=== PATIENT | female | born 1955 | race Caucasian/White ===

== ENCOUNTER 2019-06-08 14:41 | Outpatient (CLI) | payer BC, SELFPAY ==
[2019-06-08 15:26] LABS: Add Urine Microscopic? YES; Appearance Urine Clear (Clear); Bacteria Urine Trace /hpf; Bilirubin Urine Negative (Negative); Blood Urine 1+ (Negative); Color Urine Straw (Yellow); Glucose Urine UA Negative (Negative); Ketones Urine Negative (Negative); Leukocyte Esterase Ur 2+ LEU/UL (Negative); Nitrate Urine Negative (Negative); Protein Urine Negative (Negative); RBC Urine 0-2 /hpf (0-2); Specific Grav Ur 1.005 (1.001-1.035); Squamous Epithelial Cell Urine Occasional /hpf (Few); Urobilinogen Urine Negative mg/dL (<2.0); WBC Urine 21-30 /hpf
== END 2019-06-08 14:42 | disposition home or self-care (01) ==
LOC: ANHLAB 14:43
PROVIDERS: PCP Internal Medicine; Visit Provider Internal Medicine
DX: N39.0 Urinary tract infection, site not specified (principal)
CPT/HCPCS: 81001; 87077; 87086; 87088; 87186

== ENCOUNTER → 2020-11-29 08:01 | Outpatient (CLI) | payer BC, SELFPAY ==
[2020-11-29 18:53] LABS: SARS-CoV-2 RNA PCR Negative
== END ==
PROVIDERS: PCP Internal Medicine; Visit Provider Internal Medicine
DX: Z92.29 Personal history of other drug therapy (principal); Z20.822 Contact with and (suspected) exposure to COVID-19
CPT/HCPCS: C9803; U0003; U0005

== ENCOUNTER 2022-03-23 12:38 | Outpatient (CLI) | payer BC, SELFPAY ==
--- NOTE | ~2022-03-23 | DEXA_ITS ---
Bone Density Report Name: KOURTNEY MIKE Age: 66 Sex: Female Ethnicity: White Date of : 1955 Indication: postmenopausal; screening for osteoporosis; height loss; hysterectomy; Referring Provider: ELA RAUSCH Study: Bone densitometry was performed. Exam Date: March 23, 2022 Accession number: [id number] Bone Density: Region BMD T-score Z-score Classification AP Spine(L1, L2, L3) 1.140 1.1 2.8 Normal Femoral Neck (Left) 0.779 -0.6 0.9 Normal Total Hip (Left) 0.836 -0.9 0.4 Normal Femoral Neck (Right) 0.788 -0.5 1.0 Normal Total Hip (Right) 0.876 -0.5 0.7 Normal Total Hip Mean 0.856 -0.7 0.6 Normal World Health Organization criteria for BMD impression classify patients as: Normal (T-score at or above -1.0), Osteopenia (T-score between -1.0 and -2.5), or Osteoporosis (T-score at or below -2.5). 10-year Fracture Risk: FRAX not reported because: All T-scores for Spine Total, Hip Total, Femoral Neck at or above -1.0 Previous Exams: Region Exam Age BMD T-score BMD Change BMD Change Date g/cm2 vs Baseline vs Previous AP Spine (L1-L3) 03/23/2022 66 1.140 1.1 0.051 (4.7%)* 0.051 (4.7%)* 12/08/2017 62 1.089 0.6 Total Hip(Left) 03/23/2022 66 0.836 -0.9 -0.054 (-6.0%) -0.054 (-6.0%) 12/08/2017 62 0.890 -0.4 Total Hip(Right) 03/23/2022 66 0.876 -0.5 -0.035 (-3.9%) -0.035 (-3.9%) 12/08/2017 62 0.911 -0.3 *Denotes significance at 95% confidence level, LSC for AP Spine = 0.022 g/cm2, LSC for Total Hip = 0.027 g/cm2 Clinical Information Provided by Patient: Has used the following medications: HRT (i.e. estrogen/hormone therapy), Vitamin D Has the following medical conditions: Hysterectomy Patient maximum height was 67 Menopause Age: 37 Drinks caffeinated beverages Onset of menses at age 12 Number of children 2 Impression: The patient has normal bone mass. The BMD for the Total Hip(Left) decreased, changing by -6.0% since the last DXA exam. The BMD for the Total Hip(Right) decreased, changing by -3.9% since the last DXA exam. Discussion: BONE DENSITY IS ABOVE THE MINIMUM DESIRABLE LEVEL AT ALL SKELETAL SITES TESTED. This patient?s bone mineral density is above the minimum desirable level (T-score -1.0 or better) at all sites measured. The patient should follow a healthful lifestyle (good nutrition with adequate calcium and vitamin D, and appropriate weight-bearing exercise). Follow-Up: Consider repeati
== END 2022-03-23 12:39 | disposition home or self-care (01) ==
LOC: ANHIMG 12:40
PROVIDERS: PCP Internal Medicine; Visit Provider Student in an Organized Health Care Education/Training Program
DX: Z13.820 Encounter for screening for osteoporosis (principal); Z78.0 Asymptomatic menopausal state
CPT/HCPCS: 77080

== ENCOUNTER 2023-12-13 07:19 | Day surgery (SDC) | payer MEDICARE, SELFPAY ==
[2023-10-28 08:26] VITALS: BMI 24.1
[2023-11-26 09:17] VITALS: BMI 23.8
--- NOTE | 2023-12-07 12:44 | PM.HPGS ---
History of Present Illness History of Present Illness Consent: Risks, benefits, and alternatives have been discussed and questions answered. Patient agrees to proceed with procedure. Chief complaint: Neoplasm Screening Narrative: Sagrario Hammond is a 68 year old female who is referred for colon cancer screening. Review of Systems Review of Systems: All systems reviewed & are unremarkable except as noted in HPI and below PMFSH Past Medical History Medical History Benign essential hypertension Dyslipidemia Surgical History Surgical History H/O: hysterectomy History of section x2 Family History Family History Mother Heart disease Mother Family history of heart disease in male family member before age 55 Other Family history of malignant neoplasm of breast Social History Social History Smoking packs per day: 0.5 Smoking cigarettes per day: 10.0 Smoking status: Former smoker Tobacco type: cigarettes Second hand tobacco smoke exposure: No Alcohol intake: current Alcohol use details: social Substance use: never Substance use type: does not use Lack of Transportation: No Lack of Food: Never True Current Housing: I Have Housing Concerned About Future Housing: No Difficulty Paying Gas/Electric Bills: No Difficulty Paying for Meds: No Currently Unemployed: No Education: High School Diploma/GED Difficulty w/ Childcare or Family Care: No Living arrangements: with family Spiritual care concerns: No Meds Home Medications and Allergies Home Medications Medication Instructions Recorded Confirmed Type aspirin 81 mg tablet,delayed 81 mg PO DAILY 03/27/19 12/13/23 History release (Adult Low Dose Aspirin) cholecalciferol (vitamin D3) 125 5,000 unit PO DAILY 03/27/19 11/26/23 History mcg (5,000 unit) capsule omega-3 fatty acids 1,000 mg 2,000 mg PO HS 04/06/19 11/26/23 History capsule (Fish Oil Concentrate) ascorbate calcium (vitamin C) 500 500 mg PO BID 08/21/20 11/26/23 History mg tablet coenzyme Q10 200 mg capsule 200 mg PO DAILY 08/21/20 11/26/23 History progesterone micronized 200 mg See Rx Instructions PO ONCE 08/21/20 11/26/23 History capsule melatonin 5 mg capsule 5 mg PO HS 09/24/22 11/26/23 History losartan 25 mg tablet 25 mg PO DAILY #100 tabs 06/16/23 12/13/23 Rx hydrochlorothiazide 12.5 mg tablet 12.5 mg PO DAILY #100 tabs 08/11/23 12/13/23 Rx mometasone 0.1 % topical cream 1 applic topical DAILY PRN rash 10/14/23 11/26/23 Rx #15 grams estradiol 2 mg tablet 2.25 mg PO HS 11/26/23 11/26/23 History multivitamin with minerals-folic 1 tablet PO DAILY 11/26/23 11/26/23 History acid 0.4 mg tablet prasterone (dhea) 25 mg tablet 25 mg PO DAILY 11/26/23 11/26/23 History (DHEA) rosuvastatin 5 mg tablet 2.5 mg PO 2XW 11/26/23 12/13/23 History testosterone 1 % (25 mg/2.5 gram) 50 mg transdermal HS 11/26/23 11/26/23 History transdermal gel packet Allergies Allergy/AdvReac Type Severity Reaction Status Date / Time Penicillins Allergy Mild Swelling Verified 12/13/23 08:02 Exam Resp: Auscultation: clear to auscultation bilaterally Cardio: Rate: regular rate Rhythm: regular rhythm GI: GI Palp: Yes Soft to palpation and No Tenderness to palpation present (GI) Assessment and Plan Assessment and plan (1) Screening for colon cancer: Code(s): Z12.11 - Encounter for screening for malignant neoplasm of colon Status: Acute Assessment and Plan: Colonoscopy with possible biopsy or polypectomy or cautery or injection of substances.
[2023-12-13 08:04] VITALS: BP 106/93; PULSE 81; RESP 16; TEMP 37.1; O2SAT 98; BMI 23.5
[2023-12-13] MEDS: LACTATED RINGERS 1,000 ML 150 ML IV CONT (08:16)
--- NOTE | 2023-12-13 08:38 | WPDANESEPPF ---
Anes - Initial Pre Proc Eval Procedure: Operation Date: 12/13/23 09:00 Proposed Procedures p Screening Colonoscopy - James Hutchinson MD Date/Time: 12/13/23 08:38 Surgeon: James Hutchinson MD Pre Op Diagnosis: Neoplasm Screening Patient Data Age: 68 Gender: F Height: 1.7 m Weight: 68.2 kg Last Vital Signs Temp 37.1 C 12/13/23 08:04 Pulse 81 12/13/23 08:04 Resp 16 12/13/23 08:04 BP 106/93 H 12/13/23 08:04 Pulse Ox 98 12/13/23 08:04 O2 Del Method Room Air 12/13/23 08:04 Allergies Allergy/AdvReac Type Severity Reaction Status Date / Time Penicillins Allergy Mild Swelling Verified 12/13/23 08:02 Home Medications Medication Instructions Recorded Confirmed Type aspirin 81 mg tablet,delayed 81 mg PO DAILY 03/27/19 12/13/23 History release (Adult Low Dose Aspirin) cholecalciferol (vitamin D3) 125 5,000 unit PO DAILY 03/27/19 11/26/23 History mcg (5,000 unit) capsule omega-3 fatty acids 1,000 mg 2,000 mg PO HS 04/06/19 11/26/23 History capsule (Fish Oil Concentrate) ascorbate calcium (vitamin C) 500 500 mg PO BID 08/21/20 11/26/23 History mg tablet coenzyme Q10 200 mg capsule 200 mg PO DAILY 08/21/20 11/26/23 History progesterone micronized 200 mg See Rx Instructions PO ONCE 08/21/20 11/26/23 History capsule melatonin 5 mg capsule 5 mg PO HS 09/24/22 11/26/23 History losartan 25 mg tablet 25 mg PO DAILY #100 tabs 06/16/23 12/13/23 Rx hydrochlorothiazide 12.5 mg tablet 12.5 mg PO DAILY #100 tabs 08/11/23 12/13/23 Rx mometasone 0.1 % topical cream 1 applic topical DAILY PRN rash 10/14/23 11/26/23 Rx #15 grams estradiol 2 mg tablet 2.25 mg PO HS 11/26/23 11/26/23 History multivitamin with minerals-folic 1 tablet PO DAILY 11/26/23 11/26/23 History acid 0.4 mg tablet prasterone (dhea) 25 mg tablet 25 mg PO DAILY 11/26/23 11/26/23 History (DHEA) rosuvastatin 5 mg tablet 2.5 mg PO 2XW 11/26/23 12/13/23 History testosterone 1 % (25 mg/2.5 gram) 50 mg transdermal HS 11/26/23 11/26/23 History transdermal gel packet Patient hx anesthesia problems: none Family hx anesthesia problems: none Results Review: All pre-operative results and documents have been reviewed as part of the pre-operative evaluation. PMFSH Past Medical History Medical History Benign essential hypertension Dyslipidemia Surgical History Surgical History H/O: hysterectomy History of section x2 Family History Family History Mother Heart disease Mother Family history of heart disease in male family member before age 55 Other Family history of malignant neoplasm of breast Social History Social History Smoking packs per day: 0.5 Smoking cigarettes per day: 10.0 Smoking status: Former smoker Tobacco type: cigarettes Second hand tobacco smoke exposure: No Alcohol intake: current Alcohol use details: social Substance use: never Substance use type: does not use Lack of Transportation: No Lack of Food: Never True Current Housing: I Have Housing Concerned About Future Housing: No Difficulty Paying Gas/Electric Bills: No Difficulty Paying for Meds: No Currently Unemployed: No Education: High School Diploma/GED Difficulty w/ Childcare or Family Care: No Living arrangements: with family Spiritual care concerns: No Anes - Eval Final PreProcedure Day of Procedure 12/13/23 08:38 Patient weight: normal Heart: regular rate and rhythm Lungs: clear to auscultation Airway: Mallampati scale class II Neurological: alert and oriented Last oral intake: >/= 8 hours ASA classification: II Emergent: no Anesthetic plan: proceed Anesthesia type and monitoring: general GIVS and standard monitoring Results Review: All pre-operat
[2023-12-13 09:18] VITALS: BP 113/67; PULSE 73; RESP 16; O2SAT 97
[2023-12-13 09:28] VITALS: BP 109/70; PULSE 72; RESP 16; O2SAT 99
[2023-12-13 09:38] VITALS: BP 119/75; PULSE 69; RESP 16; O2SAT 100
--- NOTE | 2023-12-13 09:45 | WPDANESPN ---
Anes - Prog Note Post-Op Date/Time: 12/13/23 09:45 Cardiovascular status: normal Respiratory status: normal Airway patency: baseline Mental status: baseline Post-Op hydration status: normal Vital Signs: Last Vital Signs Temp 37.1 C 12/13/23 08:04 Pulse 69 12/13/23 09:38 Resp 16 12/13/23 09:38 BP 119/75 12/13/23 09:38 Pulse Ox 100 12/13/23 09:38 O2 Del Method Room Air 12/13/23 09:38 Pain Score (VAS): 0/10 I/O: Intake & Output 12/12/23 12/13/23 12/13/23 23:59 07:59 15:59 Intake Total 800 Balance 800 Patient Feedback: Patient satisfied with anesthetic care.
== END 2023-12-13 09:48 | disposition home or self-care (01) ==
PROVIDERS: PCP Nurse Practitioner; Visit Provider Internal Medicine Gastroenterology
PROC: 0DJD8ZZ Inspection of Lower Intestinal Tract, Via Natural or Artificial Opening Endoscopic (ICD-10-PCS; CPT 45378; principal; 2023-12-13 09:00)
DX: Z12.11 Encounter for screening for malignant neoplasm of colon (principal); K57.30 Diverticulosis of large intestine without perforation or abscess without bleeding; K64.8 Other hemorrhoids
CPT/HCPCS: 45378

== ENCOUNTER 2024-06-20 11:19 | Emergency (ER) | payer OTHER, SELFPAY ==
--- NOTE | 2024-06-20 11:22 | ED.SKABFB ---
HPI - Skin/Abscess/Foreign Bdy General Chief complaint: Skin/Abscess/Foreign Body Stated complaint: Skin Irritation Source: patient and RN notes reviewed Mode of arrival: ambulatory Limitations: no limitations History of Present Illness HPI narrative: Patient is a 69-year-old female who presents to the [facility] with complaints rash to her lower back that has been present for the last couple weeks. Patient states that she did have a 10s unit in place and thought she may have developed the rash due to the adhesive. She states that she has been applying hydrocortisone cream for the past 2 and half weeks. The rash is now become warm to touch and is itching. She denies recent fever. Related Data Home Medications ?Medication ?Instructions ?Recorded ?Confirmed ?Last Taken ?Type aspirin 81 mg tablet,delayed 81 mg PO DAILY 03/27/19 06/02/24 12/12/23 History release (Adult Low Dose Aspirin) cholecalciferol (vitamin D3) 125 5,000 unit PO DAILY 03/27/19 06/02/24 Unknown History mcg (5,000 unit) capsule omega-3 fatty acids 1,000 mg 2,000 mg PO HS 04/06/19 06/02/24 Unknown History capsule (Fish Oil Concentrate) ascorbate calcium (vitamin C) 500 500 mg PO BID 08/21/20 06/02/24 Unknown History mg tablet coenzyme Q10 200 mg capsule 200 mg PO DAILY 08/21/20 06/02/24 Unknown History progesterone micronized 200 mg See Rx Instructions PO ONCE 08/21/20 06/02/24 Unknown History capsule melatonin 5 mg capsule 5 mg PO HS 09/24/22 06/02/24 Unknown History estradiol 2 mg tablet 2.25 mg PO HS 11/26/23 06/02/24 Unknown History multivitamin with minerals-folic 1 tablet PO DAILY 11/26/23 06/02/24 Unknown History acid 0.4 mg tablet prasterone (dhea) 25 mg tablet 25 mg PO DAILY 11/26/23 06/02/24 Unknown History (DHEA) rosuvastatin 5 mg tablet 2.5 mg PO 2XW 11/26/23 06/02/24 12/12/23 History testosterone 1 % (25 mg/2.5 gram) 50 mg transdermal HS 11/26/23 06/02/24 Unknown History transdermal gel packet Allergies Allergy/AdvReac Type Severity Reaction Status Date / Time Penicillins Allergy Mild Swelling Verified 02/18/25 11:29 Review of Systems Review of Systems: CONSTITUTIONAL: Denies fever, chills, or sweats. EYES: Denies visual changes, redness, or discharge. ENT: Denies otalgia and sore throat CARDIOVASCULAR: Denies chest pain, palpitations, or edema. RESPIRATORY: Denies cough or dyspnea. GASTROINTESTINAL: Denies abdominal pain, nausea, vomiting, or diarrhea. GENITOURINARY: Denies dysuria or hematuria. SKIN: Reports rash and itching. MUSCULOSKELETAL: Denies back pain, joint pain, or myalgia. NEUROLOGIC: Denies headache, numbness, or weakness. Pertinent positives per HPI. [facility] Past Medical History Medical History BMI 24.0-24.9, adult Dyslipidemia Benign essential hypertension Surgical History Surgical History History of section x2 H/O: hysterectomy Family History Family History Mother Heart disease Family history of heart disease in male family member before age 55 Father Mesothelioma Sibling No problems noted. Other Family history of malignant neoplasm of breast Social History Social History Smoking packs per day: 0.5 Smoking cigarettes per day: 10.0 Smoking status: Former smoker Tobacco type: cigarettes Second hand tobacco smoke exposure: No Alcohol intake: current Alcohol use details: social Substance use: never Substance use type: does not use Do You Feel Safe in your Home?: Yes Lack of Transportation: No Lack of Food: Never True Current Housing: I Have Housing Concerned About Future Housing: No Difficulty Paying Gas/Electric Bills: No Difficulty Paying for Meds: No Currently Unemployed: No Education: High School Diploma/GED Difficulty w/ Childcare or Family Care: No Living arrangements: with family Occupation/Education: occupation 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 There is no relevant family history pertinent to the patient complaint. Exam Narrative: GENERAL: This is a well-nourished, well-developed patient, in no apparent distress. HEAD: normocephalic, atraumatic. EYES: Sclera clear/white. Vision is grossly intact. EARS: External ears normal, auditory canals clear and without drainage, TMs normal without perforation. Hearing grossly intact. NOSE: External nose normal with no obvious nasal discharge, nares without redness, no rhinorrhea. THROAT: Mucous membranes moist, posterior pharynx clear. NECK: Neck supple, non-tender without lymphadenopathy, masses or thyromegaly. CARDIOVASCULAR: Regular rate and rhythm without murmurs, gallops, or rubs. RESPIRATORY: Clear to auscultation. Breath sounds equal bilaterally. No wheezes, rales, or rhonchi. GASTROINTESTINAL: Abdomen soft, non-tender, nondistended. Bowel sounds are active. No hepato-splenomegaly, or palpable masses. No guarding. SKIN: Macular rash to the lower back with erythema and induration. NEURO: awake, alert, and oriented to person, place and time. There were no obvious focal neurologic abnormalities. Course Course Level of Care: Express Care Visit Vital Signs Vital signs: Vital Signs Temperature 98.2 F 06/20/24 11:29 Pulse Rate 85 06/20/24 11:29 Respiratory Rate 16 06/20/24 11:29 Blood Pressure 143/93 H 06/20/24 11:29 Pulse Oximetry 99 06/20/24 11:29 Temperature 98.2 F 06/20/24 11:29 Pulse Rate 85 06/20/24 11:29 Respiratory Rate 16 06/20/24 11:29 Blood Pressure 143/93 H 06/20/24 11:29 Pulse Oximetry 99 06/20/24 11:29 Reviewed MDM - Skin/Abscess/Foreign Bdy MDM Narrative Medical decision making narrative: Clean with soap and water only; Avoid using alcohol and peroxide. Elevate the affected area if possible Alternate Tylenol/ibuprofen for as needed for pain Acetaminophen(Tylenol) 650-1000mg every 4-6hours with max of 4000mg/day. Nonsteroidal anti-inflammatory agent (NSAIDs-ibuprofen): 400mg every 4-6hours with max 2400mg/day Take antibiotic until it's gone. Please schedule a follow up visit with your personal physician for further evaluation and treatment within 3-5days OR if your symptoms persist, change or worsen significantly before you can contact your personal physician then please, without delay, go to the emergency department for further evaluation. Differential Diagnosis Differential diagnosis: Likely urticaria, cellulitis and contact dermatitis Critical Care Time Critical Care Time Critical Care Time: No Discharge Plan Discharge Clinical Impression: Cellulitis of lower back Patient Disposition: Home, Self-Care Condition: Stable Instructions: Antibiotic Form, Cellulitis (ED) Additional Instructions: Clean with soap and water only; Avoid using alcohol and peroxide. Elevate the affected area if possible Alternate Tylenol/ibuprofen for as needed for pain Acetaminophen(Tylenol) 650-1000mg every 4-6hours with max of 4000mg/day. Nonsteroidal anti-inflammatory agent (NSAIDs-ibuprofen): 400mg every 4-6hours with max 2400mg/day Take antibiotic until it's gone. Please schedule a follow up visit with your personal physician for further evaluation and treatment within 3-5days OR if your symptoms persist, change or worsen significantly before you can contact your personal physician then please, without delay, go to the emergency department for further evaluation. Patient Language: Belarusian Prescriptions: New cephalexin 500 mg capsule 500 mg PO Q8H 10 Days Qty: 30 0RF triamcinolone acetonide 0.1 % ointment 1 applic topical BID Qty: 453.6 0RF No Action mometasone 0.1 % cream 1 applic topical DAILY PRN (Reason: rash) Qty: 15 2RF ascorbate calcium (vitamin C) 500 mg tablet 500 mg PO BID Patient Comments: patient take one tablet in the AM and another tablet at night coenzyme Q10 200 mg capsule 200 mg PO DAILY melatonin 5 mg capsule 5 mg PO HS hydrochlorothiazide 12.5 mg tablet 12.5 mg PO DAILY Qty: 100 1RF aspirin [Adult Low Dose Aspirin] 81 mg tablet,delayed release (DR/EC) 81 mg PO DAILY cholecalciferol (vitamin D3) 5,000 unit capsule 5,000 unit PO DAILY omega-3 fatty acids [Fish Oil Concentrate] 1,000 mg capsule 2,000 mg PO HS progesterone micronized 200 mg capsule See Rx Instructions PO ONCE Rx Instructions: 300mg PO once; losartan 25 mg tablet 25 mg PO DAILY Qty: 100 1RF prasterone (dhea) [DHEA] 25 mg Tablet 25 mg PO DAILY estradiol 2 mg Tablet 2.25 mg PO HS testosterone 1 % (25 mg/2.5gram) Gel In Packet 50 mg transdermal HS multivit with min-folic acid 0.4 mg Tablet 1 tablet PO DAILY rosuvastatin 5 mg tablet 2.5 mg PO 2XW Follow-up/Referrals: Boubacar Mora DO [Primary Care Provider] - Time of Disposition: 11:37
[2024-06-20 11:29] VITALS: BP 143/93; PULSE 85; RESP 16; TEMP 36.8; O2SAT 99
== END 2024-06-20 11:41 | disposition home or self-care (01) ==
PROVIDERS: Emergency Provider Nurse Practitioner; PCP Internal Medicine
DX: L03.312 Cellulitis of back [any part except buttock and flank] (principal); Z87.891 Personal history of nicotine dependence; I10 Essential (primary) hypertension; E78.5 Hyperlipidemia, unspecified; Z79.82 Long term (current) use of aspirin
CPT/HCPCS: 99213; G0463

== ENCOUNTER 2024-12-18 10:20 | Outpatient (CLI) | payer OTHER, SELFPAY ==
--- NOTE | ~2024-12-18 | XR_ITS ---
Lumbosacral Spine: AP and lateral views Clinical History: Pain Findings: There is dextroscoliosis. There is severe degenerative disc narrowing from L3 through S1. T here is 6 mm anterolisthesis of L4 over L5. There is 4 mm retrolisthesis of L2 over L3. There is exte nsive facet arthropathy throughout the lumbar spine. The sacroiliac joints are normally outlined. Impression: Advanced degenerative spondylosis, as above. Dextro scoliosis. 6 mm anterolisthesis of L4 over L5. 4 mm retrolisthesis of L2 over L3. Reviewed, dictated and finalized at location . Impression: Advanced degenerative spondylosis, as above. Dextro scoliosis. 6 mm anterolisthesis of L4 over L5. 4 mm retrolisthesis of L2 over L3.
== END 2024-12-18 10:21 | disposition home or self-care (01) ==
LOC: MICIMG 10:21
PROVIDERS: PCP Nurse Practitioner; Visit Provider Nurse Practitioner
DX: M54.50 Low back pain, unspecified (principal)
CPT/HCPCS: 72100